=== PATIENT | male | born 1965 | race Two or more races ===

== ENCOUNTER 2019-04-28 21:19 | Inpatient (IN) | payer MEDICARE, MEDICAID ==
[~2019-04-28] VITALS: Ht 182.9 cm; Wt 95.3 kg
[2019-04-29 00:05] VITALS: BP 106/70
--- NOTE | 2019-04-29 00:05 | NUR ---
GPS ADMISSION NOTES: ADMITTED THIS 53-YR OLD MALE, FROM [facility]. ON 5150 FOR DTS. PER HOLD, PT. REPORTS PLAN TO END HIS LIFE BY "CUTTING MY WRIST OR DRIVING MY CAR OFF A DESIREE. UPON FACE TO FACE ASSESSMENT, PATIENT IS ALERT, ORIENTED X3, DEPRESSED, CALM, COOPERATIVE, EASILY GETS IRRITABLE. PATIENT REPORTS HEARING VOICES TELLING HIM "I'M GOING TO BE TORTURED AND MURDERED BUT DENIES SI/HI AT THIS TIME. NO AGITATION NOTED. AMBULATES INDEPENDENTLY. PT WAS ADVISED OF THE HOLD. PT. RIGHTS HANDBOOK DISCUSSED AND A GUIDE TO PRESCRIPTION MEDICATIONS GIVEN. NOT IN ANY FORM OF DISTRESS. BELONGINGS WERE INVENTORIED AND CHECKED FOR CONTRABAND. PT. IS UNDER THE PSYCHIATRIC CARE OF DR. GARDUNO ORDERS OBTAINED, AND UNDER THE MEDICAL CARE OF DR. BORDEN. SKIN BODY ASSESSMENT DONE. SKIN IS INTACT. BED LOCKED AND PLACED IN LOWEST POSITION TO MAINTAIN SAFETY. FALL PRECAUTIONS IN PLACE. WILL CONTINUE TO MONITOR Q15 MIN ROUNDS FOR SAFETY AND BEHAVIOR.
[2019-04-29] MEDS ORDERED: MAG HYDROX/AL HYDROX/SIMETH 30 ML UDC PO PRN (00:30)
[2019-04-29] MEDS ORDERED: MAGNESIUM HYDROXIDE 30 ML UDC PO PRN (00:30)
[2019-04-29] MEDS ORDERED: BLOOD SUGAR DIAGNOSTIC 1 EACH STRIP IN ONE (00:30)
--- NOTE | 2019-04-29 00:31 | NUR ---
GPS-RN NOTES: PATIENT REFUSED TO HAVE HIS BLOOD SUGAR CHECK, OFFERED X3, DESPITE OF EXPLANATION THE IMPORTANCE BUT PATIENT REFUSED AND PT. STATED "I'M TIRED, I WANNA SLEEP".
[2019-04-29] MEDS ORDERED: TRAZ150T75 PO (03:31)
[2019-04-29] MEDS ORDERED: HYDR-4354 PO (03:31)
[2019-04-29] MEDS ORDERED: LITH150C PO (03:31)
[2019-04-29] MEDS ORDERED: ZIPR20CA2 PO (03:31)
[2019-04-29] MEDS ORDERED: DIVA500T2 PO (03:31)
[2019-04-29] MEDS ORDERED: ZOLPIDEM TARTRATE 5 MG TABLET PO PRN (07:00)
[2019-04-29 07:32] LABS: ALBUMIN 3.3 g/dL (3.4-5.0); BILIRUBIN,TOTAL 0.5 mg/dL (0.2-1.0); CALCIUM, SERUM 8.8 mg/dL (8.5-10.1); POTASSIUM 4.1 mmol/L (3.5-5.1); TOTAL PROTEIN, SERUM 6.7 g/dL (6.4-8.2)
[2019-04-29 08:00] VITALS: BP 120/75
[2019-04-29] MEDS: LORAZEPAM 0.5 MG TABLET PO PRN ×2 (08:47→14:51)
--- NOTE | 2019-04-29 08:49 | NUR ---
RN NOTE: PATIENT C/O ANXIETY, PRN ATIVAN GIVEN.
[2019-04-29] MEDS: ZIPRASIDONE 20 MG CAPSULE PO SCH ×3 (10:30→16:53)
[2019-04-29] MEDS: HYDROCODONE/APAP 10/325MG 1 EA TABLET PO PRN (12:10)
--- NOTE | 2019-04-29 12:10 | NUR ---
RN NOTE: PATIENT C/O PAIN, PRN NORCO GIVEN.
--- NOTE | 2019-04-29 14:04 | NUR ---
Denial of Contact: Pt informed the SW that he did not want the SW to contact his sister because she is not in charge of him. He stated that she should be contacted only in case of an emergency. As the pt is on a hold for danger to himself, SW will adhere to his request.
--- NOTE | 2019-04-29 14:52 | NUR ---
RN NOTE: PATIENT C/O ANXIETY AND INCREASED FEELINGS OF PARANOIA. ATIVAN 0.5 ADMINISTERED PRN ORDERED.
--- NOTE | 2019-04-29 14:55 | NUR ---
Group Note: SW encouraged the pt to participate in group therapy on 04/29/19 at 2pm discussing discharge planning but the pt refused. Pt stated that he had just been admitted to the hospital and that he had spoken to his SW and discussed that he wanted an independent living or board and care option. SW encouraged him to speak about this decision in group with the other pts but he refused and stated he wanted to remain laying down in his bed.
--- NOTE | 2019-04-29 15:28 | NUR ---
Initial Discharge Plan: Pt stated that he is currently homeless and is requesting assistance with securing an independent living or board and care. SW will work with the pt and the MD regarding appropriate discharge planning. SW will form a safe and proper discharge.
[2019-04-29 16:00] VITALS: BP 156/61
[2019-04-29] MEDS: DIVALPROEX SODIUM 500 MG TABLET.DR PO SCH ×2 (16:45→21:06)
--- NOTE | 2019-04-29 18:24 | NUR ---
RN NOTE: INFORMED DR ARCEO ON PATIENT'S ALBUMIN LEVELS. ORDERED DIETARY CONSULT.
--- NOTE | 2019-04-29 19:00 | NUR ---
RN NOTE: 1030 OF CARITO MISSED D/T MED NOT AVAILABLE/ NO CONSENT FILED.
--- NOTE | 2019-04-29 19:00 | NUR ---
RECIEVED ALERT AND AMBULATING IN THE CORRIDOR STEADY ON HIS LEGS. SMILING AND SAYS "HI" WHEN HE SEES A NURSE. HE IS AWARE OF WHERE HIS ROOM IS
[2019-04-29 20:20] VITALS: BP 140/78
[2019-04-29] MEDS: TRAZODONE 50 MG TABLET PO SCH (21:07)
--- NOTE | 2019-04-30 05:51 | NUR ---
SLEPT THIS NIGHT 8 HOURS. FRIENDLY AND COOPERATIVE. HE DID MAKE THE STATEMENT IF I CAN'T GIVE HIS MEDICATION TO HIM AT 2100 THEN DON'T BOTHER "i WILL BE ASLEEP AND NOT NEED THEM. MEDICATION TAKEN TO HIM AT 2100 I HADTO CALL HIS NAME TO AWAKEN HIM. HE AWAKENED EASILY.
[2019-04-30] MEDS: LORAZEPAM 0.5 MG TABLET PO PRN ×3 (07:48→20:14)
[2019-04-30] MEDS: HYDROCODONE/APAP 10/325MG 1 EA TABLET PO PRN ×3 (07:48→23:05)
--- NOTE | 2019-04-30 07:48 | NUR ---
RN NOTE: PT C/O OF ANXIETY REQUEST ATIVAN. ADMINISTERED ORDERED 0.5MG. PT SIMULTANEOUSLY C/O OF BACK PAIN 02/09. NORCO ADMINISTERED PRN ORDERED
[2019-04-30 08:00] VITALS: BP 133/85
[2019-04-30 08:00] LABS: CHOLESTEROL 139 mg/dL (<200); HDL CHOLESTEROL 27 mg/dL (40-60); LDL 91 mg/dL (0-99); TRIGLYCERIDES 127 mg/dL (30-150)
[2019-04-30] MEDS: DIVALPROEX SODIUM 500 MG TABLET.DR PO SCH ×2 (08:08→20:14)
[2019-04-30] MEDS: ZIPRASIDONE 20 MG CAPSULE PO SCH ×2 (08:08→17:37)
--- NOTE | 2019-04-30 13:59 | NUR ---
RN NOTE: PATIENT C/O ANXIETY AND PARANOIA. ATIVAN PRN ADMINISTERED ORDERED PATIENT C/O 01/09 BACK PAIN. NORCO PRN ADMINISTERED ORDERED.
--- NOTE | 2019-04-30 15:30 | NUR ---
GROUP NOTE: SW encouraged pt to participate in group on this present day discussing "impaired reality-testing" Pt is delusional and responding to internal stimuli. Pt was present and stating he is hospitalized because he is suicidal and wants to cut his wrist due to his current living situation and also stated that people are out to get him and want to torture him.
[2019-04-30 16:00] VITALS: BP 108/61
--- NOTE | 2019-04-30 20:23 | NUR ---
GPS RN NOTE: ATIVAN 0.5MG PO GIVEN FOR ANXIETY M/B VERBALIZATION OF ANXIETY. WILL CONTINUE TO MONITOR Q15 MINS FOR SAFETY
[2019-04-30 20:31] VITALS: BP 106/53
[2019-04-30] MEDS: TRAZODONE 50 MG TABLET PO SCH (23:05)
[2019-05-01 08:00] VITALS: BP 123/55
[2019-05-01] MEDS: HYDROCODONE/APAP 10/325MG 1 EA TABLET PO PRN ×2 (08:15→16:04)
[2019-05-01] MEDS: ZIPRASIDONE 20 MG CAPSULE PO SCH ×2 (08:16→16:04)
[2019-05-01] MEDS: DIVALPROEX SODIUM 500 MG TABLET.DR PO SCH ×2 (08:16→21:04)
--- NOTE | 2019-05-01 08:17 | NUR ---
RN NOTE: PATIENT C/O PAIN, PRN NORCO GIVEN.
[2019-05-01 10:14] LABS: BASOPHILS % (AUTO) 0.5 % (0.0-2.0); EOSINOPHILS % (AUTO) 3.7 % (0.0-6.0); HEMATOCRIT 42 % (39-51); HEMOGLOBIN 14.1 g/dL (13.5-17.5); LYMPHOCYTES # (AUTO) 1.4 /CMM (0.8-4.8); LYMPHOCYTES % (AUTO) 16.1 % (20.0-44.0); MEAN CORPUSCULAR HGB CONC 34 g/dl (31.0-36.0); MEAN CORPUSCULAR VOLUME 90 fL (80-96); MONOCYTES # (AUTO) 0.6 /CMM (0.1-1.30); MONOCYTES % (AUTO) 6.4 % (2.0-12.0); NEUTROPHILS # (AUTO) 6.5 /CMM (1.8-8.9); NEUTROPHILS % (AUTO) 73.3 % (43.0-81.0); PLATELET COUNT (AUTO) 220 /CMM (150-450); RED BLOOD CELL COUNT(AUTO) 4.61 MIL/uL (4.5-6.0); WHITE BLOOD COUNT (AUTO) 8.9 K/uL (4.3-11.0)
[2019-05-01 10:41] LABS: CALCIUM, SERUM 8.3 mg/dL (8.5-10.1); CREATININE 1.1 mg/dL (0.6-1.3); MAGNESIUM 1.8 mg/dL (1.8-2.4); PHOSPHORUS 2.6 mg/dL (2.5-4.9); POTASSIUM 4.3 mmol/L (3.5-5.1)
--- NOTE | 2019-05-01 12:39 | NUR ---
Substance Abuse Intervention: SW conducted a substance abuse intervention with the pt due to his alcohol and benzodiazepine use.
--- NOTE | 2019-05-01 14:33 | NUR ---
SNF Referral: MAIRA faxed a referral to [facility] with attention to OLIVA and Leonard to the fax number: [phone].
--- NOTE | 2019-05-01 15:05 | NUR ---
Group Note: SW encouraged pt to participate in group on 05/01/19 at 2pm discussing social supports. Pt stated that he does not have anyone in his life because his sisters are not kind people that he wants in his life. Pt stated that he does not like talking about personal topics in front of others.
[2019-05-01 16:00] VITALS: BP 128/82
--- NOTE | 2019-05-01 16:09 | NUR ---
RN NOTE: PATIENT C/O PAIN AND CONSTIPATION. PRN NORCO GIVEN ALONG WITH PRN MOM.
--- NOTE | 2019-05-01 16:30 | NUR ---
Assumed Care: received pt. asleep in bed, no distress and no agitation noted. Will continue to monitor for safety.
[2019-05-01] MEDS: LORAZEPAM 0.5 MG TABLET PO PRN (19:39)
[2019-05-01 20:15] VITALS: BP 132/70
[2019-05-01] MEDS: TRAZODONE 50 MG TABLET PO SCH (21:05)
[2019-05-02 08:00] VITALS: BP 108/61
[2019-05-02] MEDS: DIVALPROEX SODIUM 500 MG TABLET.DR PO SCH ×3 (08:09→16:23)
[2019-05-02] MEDS: ZIPRASIDONE 20 MG CAPSULE PO SCH ×2 (08:09→16:23)
[2019-05-02] MEDS: HYDROCODONE/APAP 10/325MG 1 EA TABLET PO PRN (08:10)
--- NOTE | 2019-05-02 14:57 | NUR ---
SNF Contact: OLIVA ([phone]) from [facility] contacted the SW and stated that the pt was accepted to their facility.
--- NOTE | 2019-05-02 15:28 | NUR ---
GPS RN NOTE: PT C/O OF "HEARTBURN" AND INDIGESTION. MAALOX ADMINISTERED PRN ORDERED.
[2019-05-02 16:00] VITALS: BP 125/77
--- NOTE | 2019-05-02 19:30 | NUR ---
GPS RN NOTE, RECEIVED PATIENT AWAKE AND IN BED, NO S/S OR COMPLAINTS OF PAIN AT THIS TIME. PATIENT IS DISPLAYING NO S/S OF APPARENT DISTRESS AT THIS TIME. PATIENT BREATHING IS UNLABORED WITH EQUAL RISE AND FALL OF THE CHEST. PATIENT IS ALERT AND ORIENTED X 2-3 ON ROOM AIR WITH A SPO2 95 % PATIENT IS COMPLIANT WITH MEDICATION, ISOLATIVE, ANXIOUS, COOPERATIVE. PATIENT DENIES SUICIDE IDEATIONS AND HOMICIDAL IDEATIONS AT THIS TIME. PATIENT ASSISTED WITH TURNING AND REPOSITIONING Q2HR AND PRN FOR COMFORT AND CIRCULATION. PATIENT HAS NO NEEDS AT THIS TIME. PATIENT EDUCATED ON THE USE OF THE CALL MURPHY. PATIENT BED SIDE RAILS UP X 2 FOR SAFETY, BED IS LOCKED AND LOW. WILL CONTINUE TO MONITOR THIS PATIENT Q15 MIN WITH THE HELP OF STAFF TO MAINTAIN SAFETY.
[2019-05-02 20:00] VITALS: BP 115/60
[2019-05-02] MEDS: TRAZODONE 50 MG TABLET PO SCH ×2 (21:37→21:53)
[2019-05-03 08:00] VITALS: BP 130/77
[2019-05-03] MEDS: ZIPRASIDONE 20 MG CAPSULE PO SCH ×2 (08:46→17:00)
[2019-05-03] MEDS: DIVALPROEX SODIUM 500 MG TABLET.DR PO SCH ×3 (08:47→16:20)
--- NOTE | 2019-05-03 11:34 | NUR ---
Individual Intervention: SW spoke to the pt and informed him that he will be discharged to [facility] sometime next week and the pt stated that he agrees to the placement.
[2019-05-03] MEDS: HYDROCODONE/APAP 10/325MG 1 EA TABLET PO PRN ×2 (12:36→18:26)
--- NOTE | 2019-05-03 12:36 | NUR ---
Pt c/o back pain, 02/09. Asked for pain med [place]. Pain reassessment done - pt stated that somehow it relieved him but still have some mild pain but tolerable.
[2019-05-03] MEDS: LORAZEPAM 0.5 MG TABLET PO PRN (15:20)
[2019-05-03 16:00] VITALS: BP 120/76
--- NOTE | 2019-05-03 19:45 | NUR ---
GPS RN NOTE RECEIVED PATIENT IN BED. TOLERATING ROOM AIR. RESPIRATIONS ARE EVEN AND UNLABORED. NO S.S SOB NOTED. IN NO APPARENT DISTRESS. A/O X3. ID BAND IS ON. ENVIRONMENTAL CHECKS COMPLETED AT THIS TIME. PATIENT IS CALM, COOPERATIVE, RESPONDS WHEN APPROACHED, DEPRESSED, POSITIVE SI AT THIS TIME. BED IS LOW AND LOCKED, SIDE RAILS UP X2, HOB FLAT. ORIENTED TO USE THE CALL MURPHY. WILL CONTINUE TO DO Q15MIN CHECK FOR BEHAVIOR AND SAFETY.
[2019-05-03 20:00] VITALS: BP 110/73
[2019-05-03 20:09] VITALS: BP 110/73
[2019-05-03] MEDS: TRAZODONE 50 MG TABLET PO SCH (21:26)
[2019-05-04 08:00] VITALS: BP 109/60
[2019-05-04] MEDS: HYDROCODONE/APAP 10/325MG 1 EA TABLET PO PRN ×2 (08:29→16:14)
[2019-05-04] MEDS: DIVALPROEX SODIUM 500 MG TABLET.DR PO SCH ×3 (08:29→16:54)
[2019-05-04] MEDS: ZIPRASIDONE 20 MG CAPSULE PO SCH ×2 (09:19→16:54)
[2019-05-04 16:00] VITALS: BP 109/65
[2019-05-04 20:17] VITALS: BP 122/66
[2019-05-04] MEDS: TRAZODONE 50 MG TABLET PO SCH (21:49)
[2019-05-04] MEDS: LORAZEPAM 0.5 MG TABLET PO PRN (21:49)
[2019-05-05] MEDS: ZIPRASIDONE 20 MG CAPSULE PO SCH ×2 (08:00→16:00)
[2019-05-05] MEDS: HYDROCODONE/APAP 10/325MG 1 EA TABLET PO PRN ×2 (08:00→16:00)
[2019-05-05] MEDS: DIVALPROEX SODIUM 500 MG TABLET.DR PO SCH ×3 (08:00→16:00)
[2019-05-05 09:20] VITALS: BP 103/76
[2019-05-05] MEDS: ACETAMINOPHEN 325 MG TABLET PO PRN (12:06)
[2019-05-05 16:00] VITALS: BP 120/73
[2019-05-05] MEDS: LORAZEPAM 0.5 MG TABLET PO PRN ×2 (19:45→19:47)
[2019-05-05 20:01] VITALS: BP 109/63
[2019-05-05] MEDS: TRAZODONE 50 MG TABLET PO SCH (21:22)
--- NOTE | 2019-05-05 23:03 | NUR ---
PT REFUSED SKIN CHECK / PICTURES
--- NOTE | 2019-05-05 23:24 | NUR ---
GPS RN NOTE RECEIVED PT IN BED AWAKE A/O X3. NO COMPLAINS OF PAIN. PT HAS FLAT AFFECT AND APPEARS DEPRESSED, AND ANXIOUS. COOPERATIVE. PT STATED HE HEARS VOICES THAT ARE "THREATENING AND DEMANDING" BUT DENIES SI, HI AT THIS TIME. PT ASKED FOR PRN MEDS, ATIVAN 0.5 MG 1 TAB PO GIVEN FOR ANXIETY. OFFERED FLUID AND SNACK TOLERATED. SAFETY AND FALL PRECAUTION OBSERVED, BED IN LOWEST POSITION, Q 15 MINUTES OBSERVATION CONTINUED, PM MEDS ADMINISTERED ORDERED. WILL CONTINUE TO MONITOR FOR SAFETY, MOOD AND BEHAVIOR.
[2019-05-06 08:00] VITALS: BP 113/87
[2019-05-06] MEDS: DIVALPROEX SODIUM 500 MG TABLET.DR PO SCH ×3 (08:26→17:29)
[2019-05-06] MEDS: ZIPRASIDONE 20 MG CAPSULE PO SCH (08:27)
[2019-05-06] MEDS: OLANZAPINE 10 MG TABLET PO SCH ×2 (09:26→17:28)
[2019-05-06 16:00] VITALS: BP 107/66
[2019-05-06 19:49] VITALS: BP 116/45
[2019-05-06] MEDS: TRAZODONE 50 MG TABLET PO SCH (22:48)
[2019-05-07] MEDS: HYDROCODONE/APAP 10/325MG 1 EA TABLET PO PRN ×3 (02:16→21:50)
[2019-05-07 08:00] VITALS: BP 100/71
[2019-05-07] MEDS: DIVALPROEX SODIUM 500 MG TABLET.DR PO SCH ×3 (08:18→16:48)
[2019-05-07] MEDS: OLANZAPINE 10 MG TABLET PO SCH ×2 (08:18→16:48)
--- NOTE | 2019-05-07 10:10 | NUR ---
GPS LYE MACHINE OPERATOR: NOTES C/O 02/09 LOWER BACK PAIN, MEDICATED WITH NORCO 10/ 1 TAB PO ORDERED. INSTRUCTED TO CALL FOR ASSISTANCE. WILL MONITOR.
--- NOTE | 2019-05-07 11:10 | NUR ---
GPS COMPUTER REPAIRER: NOTES UP AND ABOUT IN UNIT. VOICED NO DISCOMFORT. WILL CONTINUE TO MONITOR.
[2019-05-07 15:55] VITALS: BP 112/64
--- NOTE | 2019-05-07 16:18 | NUR ---
Group Note: SW encouraged pt to participate in group on 05/07/19 at 1pm discussing discharge planning. Pt stated that he wanted to take his nap in peace but stated that he is aware that he will be discharged to [facility] and that his MD just changed his medications so it will be in a few days. Pt has been isolative and does participate in group therapy.
[2019-05-07 20:08] VITALS: BP 121/56
[2019-05-07] MEDS: TRAZODONE 50 MG TABLET PO SCH (21:07)
[2019-05-08] MEDS: HYDROCODONE/APAP 10/325MG 1 EA TABLET PO PRN ×2 (05:40→15:19)
[2019-05-08 08:00] VITALS: BP 110/73
[2019-05-08] MEDS: OLANZAPINE 10 MG TABLET PO SCH ×2 (08:28→16:18)
[2019-05-08] MEDS: DIVALPROEX SODIUM 500 MG TABLET.DR PO SCH ×3 (08:28→16:18)
[2019-05-08] MEDS: ACETAMINOPHEN 325 MG TABLET PO PRN (11:40)
[2019-05-08 16:00] VITALS: BP 133/71
[2019-05-08] MEDS: LORAZEPAM 0.5 MG TABLET PO PRN (18:06)
--- NOTE | 2019-05-08 18:07 | NUR ---
GPS RN NOTE: ATIVAN ADMINISTERED PRN ORDERED DUE TO ANXIETY. REQUESTED BY PATIENT
[2019-05-08 20:09] VITALS: BP 117/89
[2019-05-08] MEDS: TRAZODONE 50 MG TABLET PO SCH (21:01)
[2019-05-09 08:00] VITALS: BP 126/83
[2019-05-09] MEDS: OLANZAPINE 10 MG TABLET PO SCH ×2 (08:32→16:15)
[2019-05-09] MEDS: DIVALPROEX SODIUM 500 MG TABLET.DR PO SCH ×3 (08:32→16:15)
[2019-05-09] MEDS: HYDROCODONE/APAP 10/325MG 1 EA TABLET PO PRN (08:33)
[2019-05-09] MEDS: ACETAMINOPHEN 325 MG TABLET PO PRN (13:52)
[2019-05-09 16:00] VITALS: BP 126/79
--- NOTE | 2019-05-09 20:13 | NUR ---
PATIENT APPROACHED ASKING FOR HIS TRAZODONE, STATED THAT HE LIKES TO GO TO BED, TRAZODONE 100 MG TAB PO GIVEN.
[2019-05-09] MEDS: TRAZODONE 50 MG TABLET PO SCH (20:14)
[2019-05-09 20:30] VITALS: BP 95/53
[2019-05-10 08:00] VITALS: BP 109/66
[2019-05-10] MEDS: OLANZAPINE 10 MG TABLET PO SCH (08:37)
[2019-05-10] MEDS: DIVALPROEX SODIUM 500 MG TABLET.DR PO SCH ×2 (08:37→12:10)
[2019-05-10] MEDS: HYDROCODONE/APAP 10/325MG 1 EA TABLET PO PRN (10:23)
--- NOTE | 2019-05-10 11:06 | NUR ---
SNF Referral: MAIRA faxed a a discharge clinical and consent to [facility] with attention to OLIVA and Leonard to the fax number: [phone].
--- NOTE | 2019-05-10 11:10 | NUR ---
RN NOTE: REPORT CALLED TO NASIMA CAMPA SUPERVISING RN AT [facility] .
[2019-05-10] MEDS: ACETAMINOPHEN 325 MG TABLET PO PRN (12:10)
--- NOTE | 2019-05-10 12:52 | NUR ---
Discharge Note: [facility]) located at [address] [place] [address]; . He was transported via [facility] at 1PM. Upon discharge, the pt appeared to be in a euthymic mood and presented with a calm affect. Pt denied both suicidal and homicidal ideation as well as auditory and visual hallucinations. Pt appeared to be well groomed and appropriately dressed. Pt was provided with homeless resources such as snf, health and mental health clinics, food [place], substance abuse referrals and more. Pt will be under the care of his psychiatrist, Dr. Steiner, located at [address], [place] [address]; and his rubber goods repairer, Dr. Cast, located at [address] [place] [address]; . Pt will continue to address his substance abuse with his treatment team.
--- NOTE | 2019-05-10 13:30 | NUR ---
MEDICAL AND HEALTH SERVICES MANAGER ADDENDUM: PT TO FOLLU UP WITH DR. GARDUNO [place] [address], [place] [address], [employer] [address] [address] DAWSON @ [address] [place] [address], .
--- NOTE | 2019-05-10 13:30 | NUR ---
ARBITRATOR NOTE: PATIENT IS A 53 Y/O MALE DISCHARGED TO [facility] LOCATED AT [address] [place] [id number], . PATIENT IS IN STABLE CONDITION. VSS. NO ACUTE DISTRESS NOTED. NO COMPLAINTS. COMPLIANT WITH MEDICATION MANAGEMENT. COOPERATIVE WITH PLAN OF CARE. PSYCHIATRIC TREATMENT PLANS MET. MEDICAL TREATMENT PLANS DEFERRED FOR CONTINUAL MONITORING. DENIES SI/HI/VH AT THE TIME OF DISCHARGE. SKIN INTACT. EDUCATED PATIENT ABOUT AFTERCARE WITH COPY PROVIDED. RETURNED PERSONAL BELONGINGS TO PATIENT. MEDICATIONS RECONCILED WITH ALONG WITH PSYCHIATRIC DISCHARGE ORDERS. DISCHARGE PAPERWORK SIGNED. FOR FOLLOW UP WITH PSYCHIATRIST AND EXTERIOR DOOR INSTALLER WITHIN 1 WEEK. PATIENT LEFT THE [facility] GPS VIA AMBULANCE. VS: 121/86, 91,18, 98% @ 13:30.
== END 2019-05-10 13:30 | DRG 885 ==
LOC: GPS 23:56
PROVIDERS: ADMIT Psychiatry & Neurology Psychiatry
DX: F25.1 Schizoaffective disorder, depressive type (principal); E44.1 Mild protein-calorie malnutrition; R45.851 Suicidal ideations; F29 Unspecified psychosis not due to a substance or known physiological condition; F41.9 Anxiety disorder, unspecified; G89.4 Chronic pain syndrome; F15.10 Other stimulant abuse, uncomplicated; R73.9 Hyperglycemia, unspecified; Z59.0 Homelessness; Z79.899 Other long term (current) drug therapy; Z81.8 Family history of other mental and behavioral disorders
CPT/HCPCS: 36415; 80048-TC; 80053-TC; 80061-TC; 80164-TC; 83735-TC; 84100-TC; 85025-TC; 87081-TC

== ENCOUNTER → 2021-01-05 | Outpatient (CLI) | payer MEDICARE, MEDICAID ==
[~2021-01-05] MED LIST: DIVA500T2 PO; HYDR-4354 PO; LITH150C PO; TRAZ150T75 PO; ZIPR20CA2 PO
== END ==
LOC: MSC 14:15
PROVIDERS: ATTEND Anesthesiology
DX: M54.16 Radiculopathy, lumbar region (principal); M62.830 Muscle spasm of back; M79.605 Pain in left leg; Z79.891 Long term (current) use of opiate analgesic